=== PATIENT | female | born 1995 | race Native Hawaiian/Other Pacific Islander ===

== ENCOUNTER 2017-05-04 02:53 | Emergency (ER) | payer SELFPAY ==
[~2017-05-04] VITALS: Ht 154.9 cm; Wt 55.9 kg
[2017-05-04 02:58] VITALS: TEMP 98
[2017-05-04 03:53] LABS: BASO % 0.4 % (0.0-2.0); EOS # 0.1 (0.0-0.7); EOS % 1.1 % (0-4.0); GRAN # 5.7 (1.4-6.5); HEMATOCRIT 37.3 % (35.0-45.0); HEMOGLOBIN 12.4 g/dl (12.0-15.0); MEAN CELL VOLUME 95 fl (80.0-95.0); MEAN CORPUSCULAR HEMOGLOBIN 32 pg (26.0-32.0); MEAN CORPUSCULAR HGB CONC 33 g/dl (33.0-37.0); MEAN PLATELET VOLUME 10.9 fl (7.4-10.4); MONO # 0.6 (0.1-0.6); MONO % 7.1 % (1.7-9.3); PLATELET COUNT 217 K/mm3 (130-400); RED BLOOD COUNT 3.93 M/mm3 (4.10-5.30); REDCELL DISTRIBUTION WIDTH-CV 12.7 % (11.5-14.5)
[2017-05-04 04:02] LABS: ALBUMIN 4.1 gm/dL (3.5-5.0); BILIRUBIN,TOTAL 0.5 mg/dL (0.0-1.0); CALCIUM 8.9 mg/dL (8.4-10.2); CREATININE, serum 0.72 mg/dL (0.52-1.25); POTASSIUM 3.6 mmol/L (3.4-5.0)
[2017-05-04 05:07] LABS: COLLECTION METHOD CLEAN CATCH
[2017-05-04 05:14] LABS: AMORPHOUS CRYSTAL Present /uL; PH 7 (5-8); SQUAMOUS EPITHELIAL 0-2 /hpf; URINE APPEARANCE Turbid; URINE BACTERIA None Seen /hpf; URINE BILIRUBIN Negative (NEGATIVE); URINE BLOOD Negative (NEGATIVE); URINE COLOR Yellow; URINE GLUCOSE Negative (NEGATIVE); URINE KETONE Negative (NEGATIVE); URINE LEUKOCYTE ESTERASE Negative (NEGATIVE); URINE NITRATE Negative (NEGATIVE); URINE PROTEIN(semi-quant) Negative (NEGATIVE); URINE RBC 0-2 /hpf
[2017-05-04] MEDS ORDERED: NORCO 325 MG-51 TAB PO (09:23)
[2017-05-04 09:43] VITALS: BP 125/72; PULSE 59
== END 2017-05-04 09:45 | disposition home or self-care (01) ==
LOC: COL.ER 02:53
PROVIDERS: Emergency Medicine
DX: K80.80 Other cholelithiasis without obstruction (principal)
CPT/HCPCS: J1170; J2405; J7030

== ENCOUNTER 2017-05-14 10:51 | Day surgery (SDC) | payer SELFPAY ==
[2017-05-14] VITALS (7 sets, daily range): BP systolic 101–117; BP diastolic 56–70; PULSE 54–67; TEMP 98.2
[~2017-05-14] VITALS: Ht 154.9 cm; Wt 54.6 kg
[~2017-05-14 10:51] MED LIST: NORCO 325 MG-51 TAB PO
[2017-05-14] MEDS ORDERED: BIRTH CONTROL PO (11:43)
[2017-05-14] MEDS ORDERED: NORCO 325 MG-51 TAB PO (13:18)
== END 2017-05-14 15:55 | disposition home or self-care (01) ==
LOC: SDCO 10:51
DX: K80.10 Calculus of gallbladder with chronic cholecystitis without obstruction (principal)
CPT/HCPCS: J0690; J1100; J1885; J2270; J2405; J2704; J2710; J3010; J7120